=== PATIENT | male | born 1975 | race Caucasian/White ===

== ENCOUNTER 2024-02-24 21:28 | Emergency (ER) | payer BC, SELFPAY ==
[2024-02-24 21:32] VITALS: BP 133/87; PULSE 93; RESP 20; TEMP 36.8; O2SAT 97; BMI 35.4
--- NOTE | 2024-02-24 21:46 | CRLHL7_ITS ---
For Patients: As a result of the Century Cures Act, medical imaging exams and procedure reports are released immediately into your electronic medical record. You may view this report before your referring provider. If you have questions, please contact your health care provider. INDICATION: Chest pain. TECHNIQUE: Chest 2 views. COMPARISON: 02/15/2018. FINDINGS: Cardiovascular and mediastinum: Heart size and vasculature are normal in caliber and appearance. Lungs and pleural spaces: Hazy airspace opacity within the right lower lobe. The remainder of the lungs are clear. No pleural effusion or pneumothorax. Bones and soft tissues: Unremarkable for age. IMPRESSION: Hazy opacity within the right lower lobe could represent pneumonia, in the correct clinical setting. Dictated by Shawn Perez MD @ 02/24/2024 10:19:00 PM (Electronically Signed)
--- NOTE | 2024-02-24 21:48 | ED.GENADULT ---
HPI - General Adult General Chief complaint: Chest Pain <Savana Bloom MD - Last Filed: 02/26/24 09:55> Stated complaint: Chest Pain <Savana Bloom MD - Last Filed: 02/26/24 09:55> Time Seen by Provider: 02/24/24 21:36 <Savana Bloom MD - Last Filed: 02/26/24 09:55> Source: patient and EMS <Savana Bloom MD - Last Filed: 02/26/24 09:55> Mode of arrival: EMS <Savana Bloom MD - Last Filed: 02/26/24 09:55> Limitations: no limitations <Savana Bloom MD - Last Filed: 02/26/24 09:55> History of Present Illness HPI narrative: 49-year-old male presenting today with chest pain that started approximately 3 hours prior to presentation. Patient was at home sitting in his easy chair drinking beers. He states that he has never had pain like this before. The pain was substernal radiated into his neck and both arms. He states that it was not debilitating, did not make him feel sweaty, lightheaded or dizzy. He denies feeling shortness of breath. He denies any recent illness. He denies any new physical activity today. Patient's past medical history is significant for hypertension, stage 3 chronic kidney disease, hyperlipidemia, left ventricular dysfunction and history of coronary artery disease status post DC. of note, patient states that he was in the hospital for a week for ?hypertension?. Is uncertain if he actually had a heart attack in the past although that is what his past medical records indicate. Patient states that he received some medication in the ambulance and he is now asymptomatic. Patient received sublingual nitro and aspirin per nursing staff. Medications include losartan, nifedipine, carvedilol, clonidine, Farxiga, atorvastatin, omeprazole, chlorthalidone. Past surgical history includes an appendectomy, umbilical hernia repair, tendon repair of the hand. Family history patient's father had multiple MIs, 1st 1 in his 40s. Patient smokes pack and half cigarettes per day and drinks a 6 pack nightly, more on the weekends. <Savana Bloom MD - Last Filed: 02/26/24 09:55> Related Data Home medications: Home Medications ?Medication ?Instructions ?Recorded ?Confirmed atorvastatin 40 mg tablet 40 mg PO QPM 02/24/24 02/24/24 carvedilol 25 mg tablet 25 mg PO BID 02/24/24 02/24/24 chlorthalidone 25 mg tablet 25 mg PO DAILY 02/24/24 02/24/24 cholecalciferol (vitamin D3) 25 1,000 unit PO DAILY 02/24/24 02/24/24 mcg (1,000 unit) capsule (Vitamin D3) clonidine HCl 0.3 mg tablet 0.3 mg PO BID 02/24/24 02/24/24 dapagliflozin propanediol 10 mg 10 mg PO DAILY 02/24/24 02/24/24 tablet (Farxiga) losartan 100 mg tablet 100 mg PO DAILY 02/24/24 02/24/24 nifedipine 60 mg tablet,extended 120 mg PO DAILY 02/24/24 02/24/24 release omeprazole 20 mg capsule,delayed 20 mg PO DAILY 02/24/24 02/24/24 release <Savana Bloom MD - Last Filed: 02/26/24 09:55> Allergies/adverse reactions: Allergies Allergy/AdvReac Type Severity Reaction Status Date / Time No Known Drug Allergies Allergy Verified 02/24/24 21:36 <Savana Bloom MD - Last Filed: 02/26/24 09:55> Review of Systems Status of ROS: Reports: 10 or more systems reviewed and unremarkable except as noted in History and below <Savana Bloom MD - Last Filed: 02/26/24 09:55> [facility] Medical History: Medical History Left ventricular dysfunction ?I51.9 - Heart disease, unspecified (ICD-10) Hypertensive retinopathy ?H35.039 - Hypertensive retinopathy, unspecified eye (ICD-10) Stage 3b chronic kidney disease ?N18.32 - Chronic kidney disease, stage 3b (ICD-10) Papilledema ?H47.10 - Unspecified papilledema (ICD-10) Hyperlipidemia ?E78.5 - Hyperlipidemia, unspecified (ICD-10) HTN (hypertension) ?I10 - Essential (primary) hypertension (ICD-10) Myocardial infarction type 2 ?I21.A1 - Myocardial infarction type 2 (ICD-10) <Savana Bloom MD - Last Filed: 02/26/24 09:55> Surgical History: Surgical History H/O umbilical hernia repair ?Z98.890 - Other specified postprocedural states (ICD-10) ?Z87.19 - Personal history of other diseases of the digestive system (ICD-10) Hx of appendectomy ?Z90.49 - Acquired absence of other specified parts of digestive tract (ICD-10) S/P tendon repair ?Z98.890 - Other specified postprocedural states (ICD-10) <Savana Bloom MD - Last Filed: 02/26/24 09:55> Social History: Social History Smoking Status: Current every day smoker What tobacco products do you use: cigarettes Smoking packs per day: 1 Smoking cigarettes per day: 20.0 Do you use any of these nicotine containing products: None Second hand tobacco smoke exposure: No How often do you have a drink containing alcohol: 4 or more times a week How many standard drinks containing alcohol do you have on a typical day: 5 or 6 How often do you have six or more drinks on one occasion: Daily or almost daily AUDIT-C Alcohol total score: 10 Non-prescribed substance use: denies use service: No <Savana Bloom MD - Last Filed: 02/26/24 09:55> Exam Narrative: Exam Narrative: Overweight, well-developed patient in no acute distress. Alert and oriented. Answers questions appropriately. Mood is appropriate, affect is slightly flat. Thoughts are goal oriented and rational. No tangential or magical thinking noted. Patient speaks in full sentences without needing to catch his breath. Speech is slightly slurred, eyes are glassy. HEENT: Normocephalic atraumatic. Pupils are equally round reactive to light. Extraocular muscles are intact. Conjunctivae are moist without any icterus noted. Slightly dry mucous membranes. Posterior pharynx is normal. Neck is soft . Cardiovascular: Heart is regular rate and rhythm S1 and S2 are present without any murmurs. Lungs: Clear to auscultation bilaterally no wheezes rhonchi or rales are appreciated. Patient takes deep breaths without any discomfort. Abdomen: Protuberant. Soft and nontender nondistended with normal bowel sounds. Difficult to assess for organomegaly secondary to body habitus. Extremities: Bilateral lower extremities are without edema. Normal DP and PT pulses. Skin: Well perfused without any obvious rashes. <Savana Bloom MD - Last Filed: 02/26/24 09:55> Const: Vital Signs, click to edit/add: Vital Signs - 24 hr 02/24/24 21:32 02/24/24 21:50 02/24/24 21:54 Temperature 98.3 F Pulse Rate [Pulse Oximeter] Pulse Rate [Right Pulse Oximeter] 93 88 Respiratory Rate 20 18 Blood Pressure [Le ft Upper Arm] 133/87 133/87 Blood Pressure [Ri ght Arm] Pulse Oximetry 97 98 97 Oxygen Delivery Me thod Room Air Room Air 02/24/24 23:09 02/25/24 00:15 02/25/24 02:17 Temperature 98.6 F 97.5 F L Pulse Rate [Pulse Oximeter] 83 Pulse Rate [Right Pulse Oximeter] 85 87 Respiratory Rate 16 16 16 Blood Pressure [Le ft Upper Arm] 117/78 129/86 Blood Pressure [Ri ght Arm] 124/70 Pulse Oximetry 98 97 97 Oxygen Delivery Me thod Room Air Room Air Room Air 02/25/24 04:05 02/25/24 05:33 Temperature 98.1 F 98.3 F Pulse Rate [Pulse Oximeter] Pulse Rate [Right Pulse Oximeter] 92 83 Respiratory Rate 18 16 Blood Pressure [Le ft Upper Arm] 148/99 H 148/93 H Blood Pressure [Ri ght Arm] Pulse Oximetry 97 98 Oxygen Delivery Me thod Room Air Room Air <Savana Bloom MD - Last Filed: 02/26/24 09:55> Vital Signs, click to edit/add: Vital Signs - 24 hr 02/24/24 21:32 02/24/24 21:50 02/24/24 21:54 Temperature 98.3 F Pulse Rate [Pulse Oximeter] Pulse Rate [Right Pulse Oximeter] 93 88 Respiratory Rate 20 18 Blood Pressure [Le ft Upper Arm] 133/87 133/87 Blood Pressure [Ri ght Arm] Pulse Oximetry 97 98 97 Oxygen Delivery Me thod Room Air Room Air 02/24/24 23:09 02/25/24 00:15 02/25/24 02:17 Temperature 98.6 F 97.5 F L Pulse Rate [Pulse Oximeter] 83 Pulse Rate [Right Pulse Oximeter] 85 87 Respiratory Rate 16 16 16 Blood Pressure [Le ft Upper Arm] 117/78 129/86 Blood Pressure [Ri ght Arm] 124/70 Pulse Oximetry 98 97 97 Oxygen Delivery Me thod Room Air Room Air Room Air 02/25/24 04:05 02/25/24 05:33 Temperature 98.1 F 98.3 F Pulse Rate [Pulse Oximeter] Pulse Rate [Right Pulse Oximeter] 92 83 Respiratory Rate 18 16 Blood Pressure [Le ft Upper Arm] 148/99 H 148/93 H Blood Pressure [Ri ght Arm] Pulse Oximetry 97 98 Oxygen Delivery Me thod Room Air Room Air <Namrata Julian MD - Last Filed: 02/25/24 07:12> Course Course ED Course: EKG, read by me, shows normal sinus rhythm with a pulse of 91. Patient does have some ST changes on V4, 5 and 6 when compared to a previous EKG done in 2018. POC troponin is 0.02. CBC showed elevated white cell count of 18.1 with 78.7% neutrophils. Sodium slightly low at 133. Potassium slightly low at 3.1. Creatinine is elevated at 1.7, BUN elevated at 39. LFTs are unremarkable. CRP 1.1. Alcohol less than 0.01 Repeat EKG did show changes for: Accelerated junctional rhythm low-voltage QRS with a pulse of 83. Repeat troponin elevated at 0.05. Chest x-ray showing a right-sided infiltrate consistent with pneumonia. At this time, I did speak to Dr. Davis, hotel director at [facility] who recommended a repeat troponin 8 hours from when the pain started so that will be at 2:00 a.m.. He recommends that if this troponin is once again elevated that he should be started on heparin and transferred. If it is not then he believes that the elevated troponin is likely secondary to demand ischemia from pneumonia. Dr. Davis did look at the patient's EKGs today. Plan discussed with the patient who is currently asymptomatic. IV Rocephin is given for pneumonia, fluids given hyponatremia, oral potassium also given for hypokalemia. Nicotine patch offered to the patient. Patient placed on CIWA protocol. Care transferred to oncoming physician. <Savana Bloom MD - Last Filed: 02/26/24 09:55> Reevaluation(s) Time of Reevaluation #1: 03:35 <Namrata Julian MD - Last Filed: 02/25/24 07:12> Reevaluation #1: I assumed care from Dr. Bloom. Patient continues to have no chest pain and is sleeping most of my shift. Repeat troponins are elevated at 0.26. There was about a 20 minute delay in getting a call back from cardiology. Spoke again with Dr. Davis, he is recommending transfer. Will start heparin drip. He has no further recommendations prior to transfer. Awaiting call from hospitalist. - Dr. Julian <Namrata Julian MD - Last Filed: 02/25/24 07:12> Time of Reevaluation #2: 07:11 <Namrata Julian MD - Last Filed: 02/25/24 07:12> Reevaluation #2: Significant delays in transfer due to ambulance availability. Ultimately, mutual aid was able to be obtained and patient is transferred via in [facility]. He remained without chest pain on heparin drip as directed. Continues to not require oxygen and is medically stable. <Namrata Julian MD - Last Filed: 02/25/24 07:12> Vital Signs Vital signs: Initial Vital Signs Temperature 98.3 F 02/24/24 21:32 Temperature Source Temporal Artery Scan 02/24/24 21:32 Pulse Rate 93 02/24/24 21:32 Pulse Rhythm Regular 02/24/24 21:32 Respiratory Rate 20 02/24/24 21:32 Blood Pressure 133/87 02/24/24 21:32 Blood Pressure Mean 102 02/24/24 21:32 Blood Pressure Position Semi-Fowlers 02/24/24 21:32 Pulse Oximetry 97 02/24/24 21:32 Oxygen Delivery Method Room Air 02/24/24 21:32 Vital Signs Temperature 98.3 F 02/24/24 21:32 Pulse Rate 93 02/24/24 21:32 Respiratory Rate 20 02/24/24 21:32 Blood Pressure 133/87 02/24/24 21:32 Pulse Oximetry 97 02/24/24 21:32 Oxygen Delivery Method Room Air 02/24/24 21:32 Temperature 98.3 F 02/25/24 05:33 Pulse Rate 83 02/25/24 05:33 Respiratory Rate 16 02/25/24 05:33 Blood Pressure 148/93 H 02/25/24 05:33 Pulse Oximetry 98 02/25/24 05:33 Oxygen Delivery Method Room Air 02/25/24 05:33 <Savana Bloom MD - Last Filed: 02/26/24 09:55> Initial Vital Signs Temperature 98.3 F 02/24/24 21:32 Temperature Source Temporal Artery Scan 02/24/24 21:32 Pulse Rate 93 02/24/24 21:32 Pulse Rhythm Regular 02/24/24 21:32 Respiratory Rate 20 02/24/24 21:32 Blood Pressure 133/87 02/24/24 21:32 Blood Pressure Mean 102 02/24/24 21:32 Blood Pressure Position Semi-Fowlers 02/24/24 21:32 Pulse Oximetry 97 02/24/24 21:32 Oxygen Delivery Method Room Air 02/24/24 21:32 Vital Signs Temperature 98.3 F 02/24/24 21:32 Pulse Rate 93 02/24/24 21:32 Respiratory Rate 20 02/24/24 21:32 Blood Pressure 133/87 02/24/24 21:32 Pulse Oximetry 97 02/24/24 21:32 Oxygen Delivery Method Room Air 02/24/24 21:32 Temperature 98.3 F 02/25/24 05:33 Pulse Rate 83 02/25/24 05:33 Respiratory Rate 16 02/25/24 05:33 Blood Pressure 148/93 H 02/25/24 05:33 Pulse Oximetry 98 02/25/24 05:33 Oxygen Delivery Method Room Air 02/25/24 05:33 <Namrata Julian MD - Last Filed: 02/25/24 07:12> Medications Administered Medications: Discontinued Medications Generic Name Dose Route Start Last Admin Trade Name Freq PRN Reason Stop Dose Admin Heparin Sodium (Porcine) 4,000 unit 02/25/24 03:37 02/25/24 03:50 Heparin 5,000 Unit/0.5 Ml Inj IVP 02/25/24 03:38 4,000 unit ONCE ONE Administration Ceftriaxone Sodium 1 gm/ 100 mls @ 200 mls/hr 02/24/24 23:55 02/25/24 00:40 Sodium Chloride IVPB 02/24/24 23:56 Infused ONCE ONE Infusion Sodium Chloride 500 mls @ 500 mls/hr 02/25/24 00:25 02/25/24 01:30 0.9 % Sodium Chloride 500 Ml IV 02/25/24 01:24 Infused .Q1H ONE Infusion Heparin Sodium/Dextrose 25,000 unit in 500 mls @ 0 mls/hr 02/25/24 03:45 02/25/24 03:51 Heparin IV 1,000 unit/hr .Q0M TAYA 20 mls/hr Administration Protocol Per Protocol Nicotine 1 patch 02/25/24 00:30 02/25/24 00:53 Nicotine 21 Mg Patch TRANSDERMA 1 patch Q24H TAYA Administration Potassium Chloride 40 meq 02/25/24 00:25 02/25/24 01:00 Potassium Chloride 10 Meq Capsule Er PO 02/25/24 00:26 40 meq ONCE ONE Administration <Savana Bloom MD - Last Filed: 02/26/24 09:55> Discontinued Medications Generic Name Dose Route Start Last Admin Trade Name Freq PRN Reason Stop Dose Admin Heparin Sodium (Porcine) 4,000 unit 02/25/24 03:37 02/25/24 03:50 Heparin 5,000 Unit/0.5 Ml Inj IVP 02/25/24 03:38 4,000 unit ONCE ONE Administration Ceftriaxone Sodium 1 gm/ 100 mls @ 200 mls/hr 02/24/24 23:55 02/25/24 00:40 Sodium Chloride IVPB 02/24/24 23:56 Infused ONCE ONE Infusion Sodium Chloride 500 mls @ 500 mls/hr 02/25/24 00:25 02/25/24 01:30 0.9 % Sodium Chloride 500 Ml IV 02/25/24 01:24 Infused .Q1H ONE Infusion Heparin Sodium/Dextrose 25,000 unit in 500 mls @ 0 mls/hr 02/25/24 03:45 02/25/24 03:51 Heparin IV 1,000 unit/hr .Q0M TAYA 20 mls/hr Administration Protocol Per Protocol Nicotine 1 patch 02/25/24 00:30 02/25/24 00:53 Nicotine 21 Mg Patch TRANSDERMA 1 patch Q24H TAYA Administration Potassium Chloride 40 meq 02/25/24 00:25 02/25/24 01:00 Potassium Chloride 10 Meq Capsule Er PO 02/25/24 00:26 40 meq ONCE ONE Administration <Namrata Julian MD - Last Filed: 02/25/24 07:12> Medical Decision Making Lab Data Lab results reviewed: Yes I reviewed the patient's lab results <Namrata Julian MD - Last Filed: 02/25/24 07:12> Lab results narrative: Leukocytosis with neutrophil shift. Elevated troponins. Creatinine pretty stable for patient liver enzymes look good. C-reactive protein mildly elevated, alcohol level normal. Repeat troponins continue to escalate. <Namrata Julian MD - Last Filed: 02/25/24 07:12> Labs: Lab Results 02/24/24 02/24/24 02/24/24 Range/Units 21:30 21:50 23:09 WBC 18.11 H (4.50-11.00) K/uL RBC 5.55 (4.30-5.90) m/uL Hgb 15.8 (13.5-17.5) gm/dL Hct 46.0 (37.0-53.0) % MCV 83 (80-100) fL MCH 29 (26-34) pg MCHC 34 (32-36) gm/dL RDW Coeff of Jose 13.6 (11.5-15.5) % Plt Count 361 (140-440) K/uL Neut % (Auto) 78.7 H (42.0-72.0) % Lymph % (Auto) 12.6 L (20-44) % [place] % (Auto) 5.5 (0.0-11.0) % Eos % (Auto) 1.1 (0.0-7.0) % Baso % (Auto) 0.3 (0.0-3.0) % Neut # (Auto) 14.30 H (1.7-7.0) K/uL Lymph # (Auto) 2.30 (0.90-2.90) K/uL [place] # (Auto) 1.00 H (0.00-0.90) K/UL Eos # (Auto) 0.20 (0.00-0.50) K/uL Baso # (Auto) 0.10 (0.00-0.30) K/uL Abs Immat Gran (auto) 0.30 (0.00-0.30) K/uL Imm/Tot Granulo (auto) 1.8 % INR (0.91-1.10) APTT (23-33) Seconds Sodium 133 L (135-149) mmol/L Potassium 3.1 L (3.6-5.1) mmol/L Chloride 99 (96-114) mmol/L Carbon Dioxide 21 (20-32) mmol/L Anion Gap 13 (7-15) mEq/L BUN 39 H (5-24) mg/dL Creatinine 1.7 H (0.5-1.5) mg/dL Estimated Creat Clear 53.14 Estimated GFR 49 ml/min Glucose 133 H (60-115) mg/dL Lactate 1.5 (0.5-1.9) mmol/L Calcium 9.8 (8.4-10.6) mg/dL Magnesium 2.1 (1.5-2.6) mg/dL Total Bilirubin 0.4 (0.1-1.5) mg/dL Direct Bilirubin 0.2 (0.0-0.5) mg/dL AST 25 (12-35) U/L ALT 21 (4-50) U/L Alkaline Phosphatase 80 (40-150) U/L Troponin I < 0.01 L 0.05 H (0.01-0.04) ng/mL C-Reactive Protein 1.1 H (0.5-1.0) mg/dL NT-Pro-B Natriuret Pep 77 pg/mL Total Protein 8.1 (6.0-8.3) g/dL Albumin 4.7 (3.3-5.0) g/dL Lipase 157 (23-300) U/L Ethyl Alcohol < 0.01 L (0.01-0.03) % POC Troponin I 0.02 (0.01-0.04) ng/ml 02/25/24 02/25/24 Range/Units 02:15 03:50 WBC 15.85 H (4.50-11.00) K/uL RBC 5.26 (4.30-5.90) m/uL Hgb 15.0 (13.5-17.5) gm/dL Hct 43.4 (37.0-53.0) % MCV 83 (80-100) fL MCH 29 (26-34) pg MCHC 35 (32-36) gm/dL RDW Coeff of Jose (11.5-15.5) % Plt Count 321 (140-440) K/uL Neut % (Auto) (42.0-72.0) % Lymph % (Auto) (20-44) % [place] % (Auto) (0.0-11.0) % Eos % (Auto) (0.0-7.0) % Baso % (Auto) (0.0-3.0) % Neut # (Auto) (1.7-7.0) K/uL Lymph # (Auto) (0.90-2.90) K/uL [place] # (Auto) (0.00-0.90) K/UL Eos # (Auto) (0.00-0.50) K/uL Baso # (Auto) (0.00-0.30) K/uL Abs Immat Gran (auto) (0.00-0.30) K/uL Imm/Tot Granulo (auto) % INR 0.95 (0.91-1.10) APTT 32 (23-33) Seconds Sodium (135-149) mmol/L Potassium (3.6-5.1) mmol/L Chloride (96-114) mmol/L Carbon Dioxide (20-32) mmol/L Anion Gap (7-15) mEq/L BUN (5-24) mg/dL Creatinine (0.5-1.5) mg/dL Estimated Creat Clear Estimated GFR ml/min Glucose (60-115) mg/dL Lactate (0.5-1.9) mmol/L Calcium (8.4-10.6) mg/dL Magnesium (1.5-2.6) mg/dL Total Bilirubin (0.1-1.5) mg/dL Direct Bilirubin (0.0-0.5) mg/dL AST (12-35) U/L ALT (4-50) U/L Alkaline Phosphatase (40-150) U/L Troponin I 0.26 H* (0.01-0.04) ng/mL C-Reactive Protein (0.5-1.0) mg/dL NT-Pro-B Natriuret Pep pg/mL Total Protein (6.0-8.3) g/dL Albumin (3.3-5.0) g/dL Lipase (23-300) U/L Ethyl Alcohol (0.01-0.03) % POC Troponin I (0.01-0.04) ng/ml <Savana Bloom MD - Last Filed: 02/26/24 09:55> Lab Results 02/24/24 02/24/24 02/24/24 Range/Units 21:30 21:50 23:09 WBC 18.11 H (4.50-11.00) K/uL RBC 5.55 (4.30-5.90) m/uL Hgb 15.8 (13.5-17.5) gm/dL Hct 46.0 (37.0-53.0) % MCV 83 (80-100) fL MCH 29 (26-34) pg MCHC 34 (32-36) gm/dL RDW Coeff of Jose 13.6 (11.5-15.5) % Plt Count 361 (140-440) K/uL Neut % (Auto) 78.7 H (42.0-72.0) % Lymph % (Auto) 12.6 L (20-44) % [place] % (Auto) 5.5 (0.0-11.0) % Eos % (Auto) 1.1 (0.0-7.0) % Baso % (Auto) 0.3 (0.0-3.0) % Neut # (Auto) 14.30 H (1.7-7.0) K/uL Lymph # (Auto) 2.30 (0.90-2.90) K/uL [place] # (Auto) 1.00 H (0.00-0.90) K/UL Eos # (Auto) 0.20 (0.00-0.50) K/uL Baso # (Auto) 0.10 (0.00-0.30) K/uL Abs Immat Gran (auto) 0.30 (0.00-0.30) K/uL Imm/Tot Granulo (auto) 1.8 % INR (0.91-1.10) APTT (23-33) Seconds Sodium 133 L (135-149) mmol/L Potassium 3.1 L (3.6-5.1) mmol/L Chloride 99 (96-114) mmol/L Carbon Dioxide 21 (20-32) mmol/L Anion Gap 13 (7-15) mEq/L BUN 39 H (5-24) mg/dL Creatinine 1.7 H (0.5-1.5) mg/dL Estimated Creat Clear 53.14 Estimated GFR 49 ml/min Glucose 133 H (60-115) mg/dL Lactate 1.5 (0.5-1.9) mmol/L Calcium 9.8 (8.4-10.6) mg/dL Magnesium 2.1 (1.5-2.6) mg/dL Total Bilirubin 0.4 (0.1-1.5) mg/dL Direct Bilirubin 0.2 (0.0-0.5) mg/dL AST 25 (12-35) U/L ALT 21 (4-50) U/L Alkaline Phosphatase 80 (40-150) U/L Troponin I < 0.01 L 0.05 H (0.01-0.04) ng/mL C-Reactive Protein 1.1 H (0.5-1.0) mg/dL NT-Pro-B Natriuret Pep 77 pg/mL Total Protein 8.1 (6.0-8.3) g/dL Albumin 4.7 (3.3-5.0) g/dL Lipase 157 (23-300) U/L Ethyl Alcohol < 0.01 L (0.01-0.03) % POC Troponin I 0.02 (0.01-0.04) ng/ml 02/25/24 02/25/24 Range/Units 02:15 03:50 WBC 15.85 H (4.50-11.00) K/uL RBC 5.26 (4.30-5.90) m/uL Hgb 15.0 (13.5-17.5) gm/dL Hct 43.4 (37.0-53.0) % MCV 83 (80-100) fL MCH 29 (26-34) pg MCHC 35 (32-36) gm/dL RDW Coeff of Jose (11.5-15.5) % Plt Count 321 (140-440) K/uL Neut % (Auto) (42.0-72.0) % Lymph % (Auto) (20-44) % [place] % (Auto) (0.0-11.0) % Eos % (Auto) (0.0-7.0) % Baso % (Auto) (0.0-3.0) % Neut # (Auto) (1.7-7.0) K/uL Lymph # (Auto) (0.90-2.90) K/uL [place] # (Auto) (0.00-0.90) K/UL Eos # (Auto) (0.00-0.50) K/uL Baso # (Auto) (0.00-0.30) K/uL Abs Immat Gran (auto) (0.00-0.30) K/uL Imm/Tot Granulo (auto) % INR 0.95 (0.91-1.10) APTT 32 (23-33) Seconds Sodium (135-149) mmol/L Potassium (3.6-5.1) mmol/L Chloride (96-114) mmol/L Carbon Dioxide (20-32) mmol/L Anion Gap (7-15) mEq/L BUN (5-24) mg/dL Creatinine (0.5-1.5) mg/dL Estimated Creat Clear Estimated GFR ml/min Glucose (60-115) mg/dL Lactate (0.5-1.9) mmol/L Calcium (8.4-10.6) mg/dL Magnesium (1.5-2.6) mg/dL Total Bilirubin (0.1-1.5) mg/dL Direct Bilirubin (0.0-0.5) mg/dL AST (12-35) U/L ALT (4-50) U/L Alkaline Phosphatase (40-150) U/L Troponin I 0.26 H* (0.01-0.04) ng/mL C-Reactive Protein (0.5-1.0) mg/dL NT-Pro-B Natriuret Pep pg/mL Total Protein (6.0-8.3) g/dL Albumin (3.3-5.0) g/dL Lipase (23-300) U/L Ethyl Alcohol (0.01-0.03) % POC Troponin I (0.01-0.04) ng/ml <Namrata Julian MD - Last Filed: 02/25/24 07:12> Imaging Data Chest x-ray: Attestation: I have reviewed the pertinent imaging results. <Namrata Julian MD - Last Filed: 02/25/24 07:12> My impression: Right-sided pneumonia. <Namrata Julian MD - Last Filed: 02/25/24 07:12> Radiologist's impression: IMPRESSION: Hazy opacity within the right lower lobe could represent pneumonia, in the correct clinical setting. <Namrata Julian MD - Last Filed: 02/25/24 07:12> Discharge Plan Discharge Clinical Impression: Chest pain, Pneumonia, Hypokalemia, Hyponatremia <Savana Bloom MD - Last Filed: 02/26/24 09:55> Prescriptions: No Action chlorthalidone 25 mg tablet 25 mg PO DAILY losartan 100 mg tablet 100 mg PO DAILY cholecalciferol (vitamin D3) [Vitamin D3] 25 mcg (1,000 unit) capsule 1,000 unit PO DAILY atorvastatin 40 mg tablet 40 mg PO QPM carvedilol 25 mg tablet 25 mg PO BID clonidine HCl 0.3 mg tablet 0.3 mg PO BID omeprazole 20 mg capsule,delayed release(DR/EC) 20 mg PO DAILY nifedipine 60 mg tablet extended release 120 mg PO DAILY dapagliflozin propanediol [Farxiga] 10 mg tablet 10 mg PO DAILY <Savana Bloom MD - Last Filed: 02/26/24 09:55> Follow Up/Referrals: Harris Machuca MD [Primary Care Provider] - <Savana Bloom MD - Last Filed: 02/26/24 09:55>
[2024-02-24 21:50] VITALS: O2SAT 98
[2024-02-24 21:51] LABS: Lactate* 1.5 mmol/L (0.5-1.9)
[2024-02-24 21:54] VITALS: BP 133/87; PULSE 88; RESP 18; O2SAT 97
[2024-02-24 21:54] LABS: Basophils Percent Auto 0.3 % (0.0-3.0); Eosinophils Percent Auto 1.1 % (0.0-7.0); Hemoglobin* 15.8 gm/dL (13.5-17.5); Immature Granulocytes Pct Auto 1.8 %; Lymphocytes Percent Auto 12.6 % (20-44); Mean Corpuscular HGB Conc 34 gm/dL (32-36); Mean Corpuscular Hemoglobin 29 pg (26-34); Mean Corpuscular Volume 83 fL (80-100); Monocytes Percent Auto 5.5 % (0.0-11.0); Neutrophils Percent Auto 78.7 % (42.0-72.0); Platelet Count* 361 K/uL (140-440); RDW Coefficient of Variation % 13.6 % (11.5-15.5); Red Blood Count 5.55 m/uL (4.30-5.90); Slide Review Reflex No; White Blood Count* 18.11 K/uL (4.50-11.00)
[2024-02-24 21:55] LABS: Albumin* 4.7 g/dL (3.3-5.0); Chloride* 99 mmol/L (96-114)
[2024-02-24 21:56] LABS: Sodium* 133 mmol/L (135-149)
[2024-02-24 21:57] LABS: Potassium* 3.1 mmol/L (3.6-5.1)
[2024-02-24 21:58] LABS: Creatinine* 1.7 mg/dL (0.5-1.5); Est. Creatinine Clearance* 53.14; Estimated Glomerular Filt Rate 49 ml/min
[2024-02-24 21:59] LABS: Alanine Aminotransferase* 21 U/L (4-50); Alkaline Phosphatase* 80 U/L (40-150); Anion Gap 13 mEq/L (7-15); Aspartate Amino Transferase* 25 U/L (12-35); Bilirubin Direct* 0.2 mg/dL (0.0-0.5); Bilirubin Total* 0.4 mg/dL (0.1-1.5); Blood Urea Nitrogen* 39 mg/dL (5-24); Calcium* 9.8 mg/dL (8.4-10.6); Carbon Dioxide* 21 mmol/L (20-32); Glucose* 133 mg/dL (60-115); Lipase* 157 U/L (23-300); Magnesium* 2.1 mg/dL (1.5-2.6); Total Protein* 8.1 g/dL (6.0-8.3)
[2024-02-24 22:02] LABS: C Reactive Protein* 1.1 mg/dL (0.5-1.0)
[2024-02-24 22:15] LABS: Ethanol* < 0.01 % (0.01-0.03); NT Pro B Type NatriureticPept* 77 pg/mL; Troponin I* < 0.01 ng/mL (0.01-0.04)
[2024-02-24 22:39] LABS: Troponin, Point-of-Care* 0.02 ng/ml (0.01-0.04)
[2024-02-24 23:09] VITALS: BP 117/78; PULSE 85; RESP 16; O2SAT 98
[2024-02-24 23:41] LABS: Troponin I* 0.05 ng/mL (0.01-0.04)
[2024-02-25] MEDS: cefTRIAXone 1 GM in 0.9 % SODIUM CHLORIDE Mini-bag 100 ML IVPB (00:10)
[2024-02-25 00:15] VITALS: BP 129/86; PULSE 87; RESP 16; TEMP 37; O2SAT 97
[2024-02-25] MEDS: NICOTINE 21 MG PATCH 1 PATCH TRANSDERMA (00:53)
[2024-02-25] MEDS: 0.9 % SODIUM CHLORIDE 500 ML 500 ML IV (01:00)
[2024-02-25] MEDS: POTASSIUM CHLORIDE 10 MEQ CAPSULE ER 40 MEQ PO (01:00)
[2024-02-25 02:17] VITALS: BP 124/70; PULSE 83; RESP 16; TEMP 36.4; O2SAT 97
[2024-02-25 02:50] LABS: Troponin I* 0.26 ng/mL (0.01-0.04)
[2024-02-25] MEDS: HEPARIN 5,000 UNIT/0.5 ML INJ 4000 UNIT IVP (03:50)
[2024-02-25] MEDS: HEPARIN 25,000 UNIT/500 ML BAG 20 UNIT IV (03:51)
[2024-02-25 03:57] LABS: Hematocrit 43.4 % (37.0-53.0); Mean Corpuscular HGB Conc 35 gm/dL (32-36); Mean Corpuscular Hemoglobin 29 pg (26-34); Mean Corpuscular Volume 83 fL (80-100); Platelet Count* 321 K/uL (140-440); Red Blood Count 5.26 m/uL (4.30-5.90); White Blood Count* 15.85 K/uL (4.50-11.00)
[2024-02-25 03:59] LABS: Slide Review Reflex No
[2024-02-25 04:05] VITALS: BP 148/99; PULSE 92; RESP 18; TEMP 36.7; O2SAT 97
[2024-02-25 04:29] LABS: INR 0.95 (0.91-1.10); Partial Thromboplastin Time* 32 Seconds (23-33); Prothrombin Time 13.3 Seconds
[2024-02-25 05:33] VITALS: BP 148/93; PULSE 83; RESP 16; TEMP 36.8; O2SAT 98
== END 2024-02-25 06:40 | disposition home or self-care (01) ==
PROVIDERS: Family Medicine; Emergency Provider Family Medicine; PCP Family Medicine; Visit Provider Family Medicine
DX: R07.9 Chest pain, unspecified (principal); J18.9 Pneumonia, unspecified organism; E87.6 Hypokalemia; E87.1 Hypo-osmolality and hyponatremia
CPT/HCPCS: 36415; 71046; 80048; 80076; 82077; 82565; 83605; 83690; 83735; 83880; 84484; 85025; 85027; 85610; 85730; 86140; 93005; 94761; 96365; 99285; 99291; A9270; J0696; J1644; J7030; S4990